=== PATIENT | male | born 1945 | race Two or more races ===

== ENCOUNTER 2020-01-20 06:51 | Day surgery (SDC) | payer OTHER ==
[~2020-01-20 06:51] MED LIST: ELIQUIS5 M1 PO; HYDRALAZINE HC100 MG PO; LANOXIN125 MCG PO; TOPROL XL50 M1 PO
[2020-01-20] MEDS ORDERED: PERCOCET 5-3251 EACH PO (10:33)
== END 2020-01-20 13:15 | disposition home or self-care (01) ==
LOC: CIR.AMB 06:51
PROVIDERS: ATTEND Surgery
DX: D35.1 Benign neoplasm of parathyroid gland (principal)